=== PATIENT | male | born 1960 | race Caucasian/White ===

== ENCOUNTER 2018-11-21 07:22 | Day surgery (SDC) | payer BC ==
[~2018-11-21] VITALS: Ht 172.7 cm; Wt 84.1 kg
[~2018-11-21 07:22] MED LIST: ALBU90OI INH; AMLODIPINE-ATO1 EACH PO; FLUT1DIS8 INH; METF500C PO; MONT10T PO; NEBI5 PO; Pravachol40 MG PO; Sudogest30 MG PO; THEO300ERC PO; ZYRTEC10 M1 PO; Zestril30 MG PO
--- NOTE | 2018-11-21 10:14 | NUR ---
11/21/18 Butch4 Neris Barragan LATE ENTRY---DURING COLONOSCOPY PT DID HAVE SOME YELLOW BILE FROM LEFT NOSTRIL, THIS WAS SUCTIONED AND ALSO SUCTIONED HIS AIRWAY, NO DROP OF O2 SATURATION. NO PROBLEMS
--- NOTE | 2018-11-21 10:15 | NUR ---
11/21/18 1015 Neris Barragan LATE ENTRY--- DURING DISCHARGE TEACHING I DID INFORM PATIENT THAT HE HAD VOMITED SOME BILE AND HE MAY HAVE A STRANGE TASTE IN HIS MOUTH. PATIENT DID ADMIT TO BAD TASTE. HOWEVER WHEN I ASKED IF ANY PAIN IN HIS THROAT OR DIFFICULTY SWALLOWING, HE DENIES ANY PROBLEMS
== END 2018-11-21 09:55 | disposition home or self-care (01) ==
LOC: ORSCSDS 07:22
PROVIDERS: Student in an Organized Health Care Education/Training Program
PROC: 0DBL8ZX Excision of Transverse Colon, Via Natural or Artificial Opening Endoscopic, Diagnostic (ICD-10-PCS; principal; 2018-11-21 08:45)
PROC: 0DBK8ZX Excision of Ascending Colon, Via Natural or Artificial Opening Endoscopic, Diagnostic (ICD-10-PCS; principal; 2018-11-21 08:45)
PROC: 0DBP8ZX Excision of Rectum, Via Natural or Artificial Opening Endoscopic, Diagnostic (ICD-10-PCS; principal; 2018-11-21 08:45)
DX: Z12.11 Encounter for screening for malignant neoplasm of colon (principal); D12.2 Benign neoplasm of ascending colon; D12.3 Benign neoplasm of transverse colon; D12.8 Benign neoplasm of rectum; K62.1 Rectal polyp; K57.30 Diverticulosis of large intestine without perforation or abscess without bleeding; E11.9 Type 2 diabetes mellitus without complications; I10 Essential (primary) hypertension; J45.909 Unspecified asthma, uncomplicated; Z79.899 Other long term (current) drug therapy
CPT/HCPCS: 82947; 88305; J7120

== ENCOUNTER → 2022-04-01 | Outpatient (CLI) | payer BC ==
[2022-04-01 14:35] LABS: BASOPHILS ABSOLUTE AUTO 0.07 K/mm3 (0.00-0.23); BASOPHILS PERCENT AUTO 1 % (0-2); EOSINOPHILS ABSOLUTE AUTO 0.34 K/mm3 (0.00-0.68); EOSINOPHILS PERCENT AUTO 3 % (0-6); Hematocrit 37.4 % (37.0-53.0); Hemoglobin 11.9 g/dL (13.5-17.5); IMMATURE GRAN ABSOLUTE AUTO 0.05 K/mm3 (0.00-0.10); IMMATURE GRAN PERCENT AUTO 0 % (0-1); LYMPHOCYTES ABSOLUTE AUTO 1.25 K/mm3 (0.84-5.20); LYMPHOCYTES PERCENT AUTO 9 % (21-46); MONOCYTES PERCENT AUTO 9 % (4-13); Mean Corpuscular HGB 25.6 pg (26.0-34.0); Mean Corpuscular HGB Conc 31.8 g/dL (31.5-36.5); Mean Corpuscular Volume 80 fL (80-100); Mean Platelet Volume 9.8 fL (9.1-12.4); NEUTROPHILS ABSOLUTE AUTO 10.48 K/mm3 (1.96-9.15); NEUTROPHILS PERCENT AUTO 78 % (41-73); Platelet Count 426 K/mm3 (150-400); RDW Coefficient Variation 15.9 % (11.7-14.2); RDW Standard Deviation 45.9 fL (35.1-46.3); Red Blood Cell Count 4.65 M/mm3 (4.30-5.90); White Blood Cell Count 13.39 K/mm3 (4.00-11.30)
[2022-04-01 14:39] LABS: Bun/Creatinine Ratio 14.7 (12.0-20.0); Calcium, Blood 9.1 mg/dL (8.5-10.1); Creatinine, Blood 0.95 mg/dL (0.60-1.20); Potassium, Blood 4.1 mmol/L (3.5-5.5)
== END | disposition home or self-care (01) ==
LOC: LAB 14:31 → LAB SHORT 14:31
PROVIDERS: Physician Assistant Surgical
DX: R55 Syncope and collapse (principal)
CPT/HCPCS: 80048; 85025

== ENCOUNTER 2025-05-28 09:47 | Day surgery (SDC) | payer MEDICARE ==
[~2025-05-28] VITALS: Ht 170.2 cm; Wt 78.2 kg
[~2025-05-28 09:47] MED LIST changes: -AMLODIPINE-ATO1 EACH PO; +Amlodipine-Ben1 EAC1 PO; +DYMISTA NASAL S23 G1; +FAMO40 PO; +FARXIGA10 MG PO; +Fexofenadine HC60 MG PO; +NUCALA100 MG/11 SC; +Norco 7.5-3251 EACH PO; +ROSUVASTATIN CA20 MG PO; +TRELEGY ELLIPT1 EAC1 INH
[2025-05-28 10:05] VITALS: BP 124/81
[2025-05-28] MEDS ORDERED: IBUP200 PO (10:17)
[2025-05-28] MEDS ORDERED: HydrALAZINE HCl 20 MG / ML 1ML Vial IV PRN (11:35)
[2025-05-28] MEDS ORDERED: Albuterol 2.5 MG/3 ML VIAL INH PRN (11:35)
[2025-05-28] MEDS ORDERED: ePHEDrine Sulfate 50 MG/ML 1ML Injection IV PRN (11:35)
[2025-05-28] MEDS ORDERED: Metoclopramide HCl 5MG / ML 2ML Vial IV PRN (11:35)
[2025-05-28] MEDS ORDERED: Albuterol 2.5 MG/3 ML VIAL INH ONE (11:35)
[2025-05-28] MEDS ORDERED: Ondansetron HCl 2 MG / ML 2ML Vial IV PRN (11:35)
[2025-05-28] MEDS ORDERED: Ipratropium Bromide INH 0.02% 0.5 mg/2.5ML Vial INH ONE (11:35)
[2025-05-28] MEDS ORDERED: Lidocaine HCl 4% 5 ML SDA ONE (11:47)
--- NOTE | 2025-05-28 12:06 | NUR ---
05/28/25 1206 Lizbeth Garrett MONITOR INTACT WITH CONTINUOUS PULSE OXIMETRY, CONTINUOUS END TITAL CO2, 3-LEAD EKG AND INTERMITTENT BLOOD PRESSURE. PATIENT GIVEN TOPICAL ORAL LIDOCAINE SPRAY BY DR GRAY.
[2025-05-28 12:30] VITALS: BP 123/82
[2025-05-28 12:43] VITALS: BP 122/85
--- NOTE | 2025-05-28 12:46 | NUR ---
TO STEP POST PROCEDURE. A/O X 3, DENIES PAIN, NAUSEA, SOB. LYLE PO WELL. DC'D IV INTACT. VERBALIZED UNDERSTANDING OF DC INSTRUCTION. DC'D VIA WC TO PRIVATE CAR WITH WALL COVERING INSTALLER.
== END 2025-05-28 12:45 | disposition home or self-care (01) ==
LOC: ORSCMMR 09:47 → ORD 11:15 → ORSCMMR 11:15
PROVIDERS: Surgery
PROC: 0DB78ZX Excision of Stomach, Pylorus, Via Natural or Artificial Opening Endoscopic, Diagnostic (ICD-10-PCS; principal; 2025-05-28 11:15)
DX: K21.9 Gastro-esophageal reflux disease without esophagitis (principal); K44.9 Diaphragmatic hernia without obstruction or gangrene; K31.9 Disease of stomach and duodenum, unspecified; J82.83 Eosinophilic asthma; E78.5 Hyperlipidemia, unspecified; J44.89 Other specified chronic obstructive pulmonary disease; E11.9 Type 2 diabetes mellitus without complications; Z79.899 Other long term (current) drug therapy; Z79.84 Long term (current) use of oral hypoglycemic drugs
CPT/HCPCS: 82947; 88305; 88312; J2003; J2704; J7120

== ENCOUNTER 2025-07-17 06:34 | Day surgery (SDC) | payer MEDICARE ==
[~2025-07-17] VITALS: Ht 172.7 cm; Wt 79.2 kg
[2025-07-17] VITALS (15 sets, daily range): BP systolic 114–150; BP diastolic 75–92
[~2025-07-17 06:34] MED LIST changes: +IBUP200 PO
[2025-07-17] MEDS ORDERED: Bupivacaine 0.5% W/EPI 1:200000 SDV 30 ML Vial ONE (07:24)
[2025-07-17] MEDS ORDERED: Ondansetron HCl 2 MG / ML 2ML Vial ONE (07:26)
[2025-07-17] MEDS ORDERED: Dexamethasone Sod Phos 10 MG/ML 1ML VIAL ONE (07:26)
[2025-07-17] MEDS ORDERED: FentaNYL Citrate 50 MCG/ML 2 ML Injection ONE ×2 (07:26→11:03)
[2025-07-17] MEDS ORDERED: Phenylephrine HCl 100 MCG/ML-NS 10MLSYR (1MG/10ML) ONE (07:26)
[2025-07-17] MEDS ORDERED: Rocuronium Bromide 10 MG/ML 5ML Injection IV ONE ×2 (07:26→09:20)
[2025-07-17] MEDS ORDERED: Midazolam HCl 1MG / ML 2ML Vial ONE (07:26)
--- NOTE | 2025-07-17 07:30 | NUR ---
AMBULATORY INTO [facility]. PT DENIES PAIN OR SOB. HISTORY AND ALLERGIES REVIEWED. LUNGS CLEAR. SATS 98% ON RA. NPO STATUS CONFIRMED. PT SON PEPE IS RIDE HOME TODAY. PT GLASSES AND DENTURES TAKEN TO PACU. OTHER BELONGINGS IN BAG BELOW SARAH.
[2025-07-17] MEDS ORDERED: ePHEDrine Sulfate 50 MG/ML 1ML Injection ONE (08:08)
[2025-07-17] MEDS ORDERED: Sugammadex Sodium 200 MG/2ML SDV (100 MG/ML) ONE (08:38)
[2025-07-17] MEDS ORDERED: FentaNYL Citrate 50 MCG/ML 2 ML Injection IV PRN ×2 (08:50→08:55)
[2025-07-17] MEDS ORDERED: HYDROmorphone HCl/Pf 1MG SYR IV PRN ×3 (08:50→11:00)
[2025-07-17] MEDS ORDERED: HydrALAZINE HCl 20 MG / ML 1ML Vial IV PRN (08:50)
[2025-07-17] MEDS ORDERED: ePHEDrine Sulfate 50 MG/ML 1ML Injection IV PRN (08:55)
[2025-07-17] MEDS ORDERED: Albuterol 2.5 MG/3 ML VIAL INH PRN (08:55)
[2025-07-17] MEDS ORDERED: Ondansetron HCl 2 MG / ML 2ML Vial IV PRN ×2 (08:55→11:00)
[2025-07-17] MEDS ORDERED: HYDROmorphone HCl/Pf 1MG SYR ONE (09:32)
[2025-07-17] MEDS ORDERED: HYDROcodone 7.5-APAP 325 TAB PO PRN (10:45)
[2025-07-17] MEDS ORDERED: FLU VACC TS2025(65UP)/MF59C/PF 45 MCG/0.5 ML SYRINGE IM SCH (11:00)
[2025-07-17] MEDS ORDERED: Ketorolac Tromethamine 30mg Vial ONE (11:07)
--- NOTE | 2025-07-17 12:11 | NUR ---
POST-OP PATIENT TO ROOM 224 @1150 TRANSFERS TO BED WITH SBA. PATIENT IS AOX4, LAP SITES X4 C/D/I. IV FLUIDS RUNNING. DENIES N/V. VSS. ON 2L NC SPO2 97%. FAMILY IN ROOM. CALL LIGHT IN REACH.
[2025-07-17] MEDS ORDERED: Albuterol HFA200 ACT/6.7 GM INH INH PRN (13:00)
--- NOTE | 2025-07-17 14:41 | NUR ---
DISCHARGE PATIENT TOLERATING PO INTAKE, VOIDING, TOLERATING MEDICATIONS. IV TAKEN OUT INTACT. ALL INSTRUCTIONS READ AND SIGNED. PATIENT LEAVES ON OWN TO AWAITING VEHICLE.
[2025-07-17] MEDS ORDERED: THEOPHYLLINE 300 MG PO SCH (21:00)
[2025-07-18] MEDS ORDERED: Enoxaparin 40 MG/0.4 ML SYR SC SCH (09:00)
== END 2025-07-17 14:41 | disposition home or self-care (01) ==
LOC: ORSCMMR 06:34 → ORD 08:00 → SURS 11:44 → ORSCMMR 14:41
PROVIDERS: Surgery
PROC: 0DQ44ZZ Repair Esophagogastric Junction, Percutaneous Endoscopic Approach (ICD-10-PCS; principal; 2025-07-17 08:00)
PROC: 3E023BZ Introduction of Anesthetic Agent into Muscle, Percutaneous Approach (ICD-10-PCS; principal; 2025-07-17 08:00)
DX: K44.9 Diaphragmatic hernia without obstruction or gangrene (principal); K21.00 Gastro-esophageal reflux disease with esophagitis, without bleeding; J82.83 Eosinophilic asthma; D50.9 Iron deficiency anemia, unspecified; E78.5 Hyperlipidemia, unspecified; I10 Essential (primary) hypertension; E11.9 Type 2 diabetes mellitus without complications; Z87.11 Personal history of peptic ulcer disease; Z79.84 Long term (current) use of oral hypoglycemic drugs; Z79.899 Other long term (current) drug therapy
CPT/HCPCS: 82947; A9270; J1100; J1171; J1885; J2250; J2371; J2405; J2704; J3010; J7120